=== PATIENT | male | born 1930 | race Caucasian/White ===

== ENCOUNTER 2020-02-23 08:40 | Outpatient (CLI) | payer MEDICARE, BC ==
--- NOTE | 2020-02-23 10:13 | MRI ---
EXAM: MRI left hip PROVIDED CLINICAL HISTORY: Pain COMPARISON: None FINDINGS: There is high-grade partial thickness insertional tearing of the left gluteus minimus, with conspicuo us subgluteus minimus bursal fluid. The left hip flexor, remaining abductor, adductor and hamstring tendons demonstrate an intact MR appearance. The amount of fluid within the left hip joint appears physiologic. The acetabular labrum and femoral- acetabular articular cartilage are suboptimally evaluated in the absence of joint distention but appear grossly normal. Regional marrow signal unaffected by susceptibility artifact appears normal. On the wide field of view coronal images, there is evidence for conspicuous subcutaneous minimus burs al fluid on the right. Tendon integrity is poorly evaluated. The courses of the regional major neurovascular structures appear unremarkable. IMPRESSION: High-grade partial thickness insertional tearing of the left gluteus minimus tendon with conspicuous subgluteus minimus bursitis.
== END 2020-02-23 08:41 | disposition home or self-care (01) ==
LOC: TBSIIMAG 08:40
PROVIDERS: ATTEND Orthopaedic Surgery
DX: M16.12 Unilateral primary osteoarthritis, left hip (principal); S76.012A Strain of muscle, fascia and tendon of left hip, initial encounter